=== PATIENT | male | born 1990 | race Caucasian/White ===

== ENCOUNTER 2016-08-04 12:13 | Emergency (ER) | payer OTHER ==
[2016-08-04 12:17] VITALS: BP 122/78; TEMP 98; BMI 20.9
[2016-08-04] MEDS ORDERED: KEFLEX PO STA (12:37)
[2016-08-04] MEDS ORDERED: CLEOCIN PO STA (12:37)
--- NOTE | 2016-08-04 12:41 | ED.PDOC ---
General ED Provider: Dr. JULIENNE FIELDS Chief Complaint: Bite Stated Complaint: rt thigh has a spot, he thinks some thing bite him, taking amoxicillin not helping. Time Seen by Physician: 12:38 Mode of Arrival: Walk-In Information Source: Patient Nursing and Triage Documentation Reviewed and Agree: Yes Skin Complaint Exam - Skin/Soft Tissue Complaint/Exam Symptoms Are: Still present Timing: Constant Initial Severity: Mild Current Severity: Mild Character: Reports: Redness, Swelling, Raised, Painful Aggravating: Reports: Touch Alleviating: Reports: None Associated Signs and Symptoms: Reports: Drainage, Tenderness, Red streaks. Denies: Fever, Chills, Itching, Bruising, Joint swelling Related Surgical History: Reports: None Recent Exposure to Others w/Similar Symptoms: No Skin Findings: Present: Erythema, Induration. Absent: Fluctuant mass Differential Diagnoses: Abscess, Cellulitis Review of Systems - Review Of Systems Constitutional: Reports: No symptoms Eyes: Reports: No symptoms Ears, Nose, Mouth, Throat: Reports: No symptoms Respiratory: Reports: No symptoms Cardiac: Reports: No symptoms GI: Reports: No symptoms : Reports: No symptoms Musculoskeletal: Reports: No symptoms Skin: Reports: No symptoms Neurological: Reports: No symptoms Endocrine: Reports: No symptoms Hematologic/Lymphatic: Reports: No symptoms All Other Systems: Reviewed and Negative Past Medical History - Past Medical History Previously Healthy: Yes Endocrine: Reports: None Cardiovascular: Reports: None Respiratory: Reports: None Hematological: Reports: None Gastrointestinal: Reports: None Genitourinary: Reports: None Neuro/Psych: Reports: None Musculoskeletal: Reports: None Cancer: Reports: None - Surgical History General Surgical History: Reports: None - Family History Family History: Reports: None - Social History Smoking Status: Current every day smoker, Light tobacco smoker Smoking Cessation Counseling Time: > 3 min - 10 min Hx Substance Use: No Alcohol Screening: None Physical Exam - Physical Exam Appearance: Well-appearing, No pain distress, Well-nourished Eyes: DELLA, EOMI, Conjunctiva clear ENT: Ears normal, Nose normal, Oropharynx normal Respiratory: Airway patent, Breath sounds clear, Breath sounds equal, Respirations nonlabored Cardiovascular: RRR, Pulses normal, No rub, No murmur GI/: Soft, Nontender, No masses, Bowel sounds normal, No Organomegaly Musculoskeletal: Normal strength, ROM intact, No edema, No calf tenderness Skin: Warm (rt thigh 2/3 cm red raised area, oozing serous fluid. tender.), Dry , Normal color Neurological: Sensation intact, Motor intact, Reflexes intact, Cranial nerves intact, Alert, Oriented Psychiatric: Affect appropriate, Mood appropriate Critical Care Note - Critical Care Note Total Time (mins): 0 Course - Course Orders, Labs, Meds: Orders Category Date Time Status WOUND CULTURE Stat LAB 08/04/16 12:37 Uncollected Cephalexin [Keflex] MEDS 08/04/16 12:37 Stat 500 mg PO ONCE STA Clindamycin HCl [Cleocin] MEDS 08/04/16 12:37 Stat 300 mg PO ONCE STA Medications Generic Name Dose Route Start Last Admin Trade Name Freq PRN Reason Stop Dose Admin Cephalexin 500 mg 08/04/16 12:37 Keflex PO 08/04/16 12:38 ONCE STA Clindamycin HCl 300 mg 08/04/16 12:37 Cleocin PO 08/04/16 12:38 ONCE STA Vital Signs: Temp Pulse Resp BP Pulse Ox 08/04/16 12:13 98.0 F 105 H 18 122/78 97 Departure - Departure Time of Disposition: 12:42 Disposition: HOME SELF-CARE Discharge Problem: Abscess Instructions: Abscess (ED) Condition: Stable Pt referred to PMD for follow-up: Yes Additional Instructions: do not touch the area, if Increase in size come back can take Tylenol prn stop amoxicillin Prescriptions: Cephalexin [Keflex] 500 mg PO Q12HR #20 capsule Clindamycin HCl 300 mg PO TID #15 capsule Allergies/Adverse Reactions: Allergies No Known Allergies Allergy (Verified 08/04/16 12:18) Home Medications: Ambulatory Orders Cephalexin [Keflex] 500 mg PO Q12HR #20 capsule 08/04/16 Clindamycin HCl 300 mg PO TID #15 capsule 08/04/16 Disposition Discussed With: Patient
== END 2016-08-04 13:00 | disposition home or self-care (01) ==
LOC: ED 12:13
DX: L02.415 Cutaneous abscess of right lower limb (principal); F17.210 Nicotine dependence, cigarettes, uncomplicated
CPT/HCPCS: 87070; 87186; 99282

== ENCOUNTER 2018-06-20 20:45 | Emergency (ER) ==
[2018-06-20 20:55] VITALS: BP 118/69; TEMP 100.8
[2018-06-20 21:09] VITALS: BMI 27.7
--- NOTE | 2018-06-20 21:28 | DI ---
EXAM: Right foot three view HISTORY: Injury COMPARISON: None FINDINGS: The bones are normal. The joints are normal. No focal soft tissue abnormality. IMPERSSION: Normal examination.
--- NOTE | 2018-06-20 21:28 | DI ---
EXAM: Three views of the right ankle HISTORY: Right ankle injury. COMPARISON: The right foot x-rays same day FINDINGS: There is no lytic or blastic lesion. There is no displaced fracture or dislocation. The s oft tissues are normal. Joint space is normal. Hind foot structures are normal. There is no abnorm al periosteal reaction. IMPRESSION: No acute abnormality of the right ankle.
[2018-06-20] MEDS ORDERED: NORCO 7.5-325 PO STA (21:32)
--- NOTE | 2018-06-20 21:35 | ED.PDOC ---
General ED Provider: Dr. ZANDER GIBSON-ER Chief Complaint: Foot Pain/Injury Stated Complaint: i twisted my ankle Time Seen by Physician: 20:50 Mode of Arrival: Walk-In Information Source: Patient Exam Limitations: No limitations Nursing and Triage Documentation Reviewed and Agree: Yes Does patient meet sepsis criteria?: No System Inflammatory Response Syndrome: Not Applicable Sepsis Protocol: For patient's 13 years and over: Temp is 96.8 and below OR 101 and greater Pulse >90 BPM Resp >20/minute Acutely Altered Mental Status Are patient's symptoms suggestive of a new infection, such as: -Pneumonia -Skin, Soft Tissue -Endocarditis -UTI -Bone, Joint Infection -Implantable Device -Acute Abdominal Infection -Wound Infection -Meningitis -Blood Stream Catheter Infection -Unknown Musculoskeletal Complaint Exam - Ankle/Foot Complaint/Exam Location of Injury: Reports: Right, Ankle Mechanism of Injury: Reports: Trauma Onset/Duration: one hour Symptoms Are: Reports: Still present Onset of Pain: Reports: Immediate Initial Severity: Mild Current Severity: Moderate Location: Reports: Discrete Character: Reports: Dull, Aching Alleviating: Reports: Rest Aggravating: Reports: Movement, Weight bearing Able to Bear Weight: No Associated Signs and Symptoms: Reports: Swelling, Bruising Lower Extremity Findings: Present: Swelling, Ecchymosis, Tenderness, Limited range of motion Achilles Tendon Abnormality: No Tenderness: Present: Medial malleolus Differential Diagnosis: Closed Fracture, Sprain, Strain Review of Systems - Review Of Systems Constitutional: Reports: No symptoms Eyes: Reports: No symptoms Ears, Nose, Mouth, Throat: Reports: No symptoms Respiratory: Reports: No symptoms Cardiac: Reports: No symptoms GI: Reports: No symptoms : Reports: No symptoms Musculoskeletal: Reports: Joint pain, Joint swelling, Muscle pain Skin: Reports: No symptoms Neurological: Reports: No symptoms Endocrine: Reports: No symptoms Hematologic/Lymphatic: Reports: No symptoms All Other Systems: Reviewed and Negative Past Medical History - Past Medical History Previously Healthy: Yes Endocrine: Reports: None Cardiovascular: Reports: None Respiratory: Reports: None Hematological: Reports: None Gastrointestinal: Reports: None Genitourinary: Reports: None Neuro/Psych: Reports: None Musculoskeletal: Reports: None Cancer: Reports: None - Surgical History General Surgical History: Reports: None - Family History Family History: Reports: None - Social History Smoking Status: Current every day smoker, Light tobacco smoker Hx Substance Use: Yes (Marijuana) Alcohol Screening: None - Immunizations Tetanus Shot up to Date: Yes Physical Exam - Physical Exam Appearance: Well-appearing, No pain distress, Well-nourished Pain Distress: Moderate Eyes: DELLA, EOMI, Conjunctiva clear ENT: Ears normal, Nose normal, Oropharynx normal Neck: Supple Respiratory: Airway patent, Breath sounds clear, Breath sounds equal, Respirations nonlabored Cardiovascular: RRR, Pulses normal, No rub, No murmur GI/: Soft, Nontender, No masses, Bowel sounds normal, No Organomegaly Musculoskeletal: Limited ROM Skin: Warm, Dry, Normal color Neurological: Sensation intact, Motor intact, Reflexes intact, Cranial nerves intact, Alert, Oriented Psychiatric: Affect appropriate, Mood appropriate Interpretation - Radiology Interpretation Radiology Interpretation By: Radiologist Radiology Results: Negative Critical Care Note - Critical Care Note Total Time (mins): 0 Course - Course Orders, Labs, Meds: Orders Category Date Time Status CRUTCHES [ED CRUTCHES] .ONCE EMERGENCY 06/20/18 21:32 Active ED RENEA WRAP .ONCE EMERGENCY 06/20/18 21:32 Active ED SPLINT APPLICATION .ONCE EMERGENCY 06/20/18 21:32 Active Ice Pack [ED APPLY ICE AFFECTED AREA] .ONCE EMERGENCY 06/20/18 21:00 Active Hydrocodone Bit/Acetaminophen [Burson 7.5-325] MEDS 06/20/18 21:32 Stat 1 tab PO ONCE STA ANKLE, RIGHT MIN 3 VIEWS Stat RADS 06/20/18 20:59 Completed FOOT, RIGHT 3 VIEWS Stat RADS 06/20/18 20:59 Completed Vital Signs: Temp Pulse Resp BP Pulse Ox 06/20/18 20:45 100.8 F H 82 20 118/69 95 Departure - Departure Time of Disposition: 21:35 Disposition: HOME SELF-CARE Discharge Problem: Ankle injury Qualifiers: Encounter type: initial encounter Laterality: right Qualified Code(s): S99.911A - Unspecified injury of right ankle, initial encounter Instructions: Ankle Sprain (ED) Condition: Good Pt referred to PMD for follow-up: Yes IPMP verified?: No Additional Instructions: stay in splint-=--use crutches---norco 7.5mg q 4hrs prn pain #12---f/u with pcp- -consider mri or ortho referral Allergies/Adverse Reactions: Allergies No Known Allergies Allergy (Verified 06/20/18 20:55) Home Medications: Ambulatory Orders 1 [No Reported Medications] 06/20/18 Disposition Discussed With: Patient, Family
== END 2018-06-20 21:43 | disposition home or self-care (01) ==
LOC: ED 20:45
DX: S99.911A Unspecified injury of right ankle, initial encounter (principal); X50.1XXA Overexertion from prolonged static or awkward postures, initial encounter; F17.210 Nicotine dependence, cigarettes, uncomplicated
CPT/HCPCS: 99283